=== PATIENT | male | born 1980 | race Caucasian/White ===

== ENCOUNTER 2025-03-25 06:23 | Day surgery (SDC) | payer OTHER ==
[2025-03-25] MEDS: Lactated Ringers 1,000 ML IV SCH (06:37)
[2025-03-25] MEDS ORDERED: Propofol 200 MG/20 ML SDV ONE (07:53)
[2025-03-25] MEDS ORDERED: fentaNYL 100 MCG/2 ML SDV ONE (07:53)
== END 2025-03-25 09:00 | disposition home or self-care (01) ==
LOC: VM.SDS 06:23
PROVIDERS: ATTEND Student in an Organized Health Care Education/Training Program
DX: Z12.11 Encounter for screening for malignant neoplasm of colon (principal); I10 Essential (primary) hypertension; E11.9 Type 2 diabetes mellitus without complications; E66.9 Obesity, unspecified; Z79.84 Long term (current) use of oral hypoglycemic drugs; Z68.32 Body mass index [BMI] 32.0-32.9, adult; Z79.899 Other long term (current) drug therapy
CPT/HCPCS: 45378; 82947; J2704; J3010; J7120